=== PATIENT | female | born 1945 | race Caucasian/White ===

== ENCOUNTER 2019-06-06 11:21 | Emergency (ER) | payer MEDICARE ==
[~2019-06-06] VITALS: Ht 160 cm; Wt 72.3 kg
[2019-06-06 11:29] VITALS: BP 140/77
--- NOTE | 2019-06-06 11:50 | NUR ---
PT TO ROOM FROM LOBBY AT THIS TIME.
[2019-06-06] MEDS ORDERED: ONDANSETRON ODT 4 MG ONE (12:21)
[2019-06-06] MEDS ORDERED: HYDROmorphone 1 MG/ML, 1ML INJ ONE (12:22)
[2019-06-06] MEDS ORDERED: HYDROmorphone 2 MG/ML, 1ML IM ONE (12:30)
[2019-06-06] MEDS ORDERED: ONDANSETRON ODT 4 MG PO ONE (12:30)
== END 2019-06-06 13:17 | disposition home or self-care (01) ==
LOC: ED 13:13
DX: S02.2XXA Fracture of nasal bones, initial encounter for closed fracture (principal); S52.181A Other fracture of upper end of right radius, initial encounter for closed fracture; S52.091A Other fracture of upper end of right ulna, initial encounter for closed fracture; M25.521 Pain in right elbow; I10 Essential (primary) hypertension; E78.00 Pure hypercholesterolemia, unspecified; W01.0XXA Fall on same level from slipping, tripping and stumbling without subsequent striking against object, initial encounter; Y93.89 Activity, other specified; Y92.410 Unspecified street and highway as the place of occurrence of the external cause; Y99.8 Other external cause status
CPT/HCPCS: 29105; 96372; 99283; J1170; Q0162